=== PATIENT | male | born 1980 | race Caucasian/White ===

== ENCOUNTER 2017-01-15 10:19 | Emergency (ER) | payer OTHER ==
[~2017-01-15] VITALS: Ht 170.2 cm; Wt 82.0 kg
[~2017-01-15 10:19] MED LIST: RISP1 PO; RISP3TAB23 PO
[2017-01-15 10:23] VITALS: BP 139/79; PULSE 97; RESP 18; TEMP 97.8; O2SAT 98
--- NOTE | 2017-01-15 10:35 | PD ---
HPI . acute on chronic neck and back pain Chief Complaint: Back/ Neck Pain or Injury Time Seen by Provider: 10:28 Travel History International Travel<30 days: No Contact w/Intl Traveler<30days: No Traveled to known affect area: No History of Present Illness HPI 36-year-old male with chronic neck and back pain here with complaints of acute on chronic back pain. Patient tells me that he was previously seen by his primary care provider over 4 weeks ago and given Flexeril for his pain, which has not been working. He tells me that now he is having worsening pain that is deep within and cannot be reproduced on examination. He denies any bowel or bladder dysfunction. He denies any saddle anesthesia. Denies any recent injury. He does work cleaning windows and tells me that this pain is making it difficult to work. PFSH Past Medical History Bipolar Disorder: Yes Social History Alcohol Use: Yes (DAILY "VARIES AT LEAST 5/BEERS") Tobacco Use: Yes (1.5 PPD) Substance Use: No Allergies-Medications (Allergen,Severity, Reaction): Coded Allergies: Scallop (Verified Allergy, Severe, swelling, 01/15/17) Reported Meds & Prescriptions Reported Meds & Active Scripts Active Prednisone 50 Mg Tab 50 Mg PO DAILY Risperdal (Risperidone) 3 Mg Tab 3 Mg PO DAILY 30 Days Risperdal (Risperidone) 3 Mg Tab 3 Mg PO DAILY 10 Days Reported Risperdal (Risperidone) 1 Mg Tab 3 Mg PO HS Review of Systems General / Constitutional: No: Fever Eyes: No: Visual changes HENT: No: Headaches Cardiovascular: No: Chest Pain or Discomfort Respiratory: No: Shortness of Breath Gastrointestinal: No: Abdominal Pain Genitourinary: No: Dysuria Musculoskeletal: Positive: Pain (back and neck pain) Skin: No Rash Neurologic: No: Weakness Psychiatric: No: Depression Endocrine: No: Polydipsia Hematologic/Lymphatic: No: Easy Bruising Physical Exam Narrative GENERAL: AAO x 3, no acute distress, Well-nourished, well-developed patient. SKIN: Warm and dry. No visible rashes or bruising. HEAD: Normocephalic and atraumatic. EYES: No scleral icterus. No injection or drainage. EOM intact, PERRLA ENT: No nasal drainage noted. Mucous membranes pink. Airway patent. NECK: Supple, trachea midline. No JVD. No C-spine tenderness. Full range of motion. Flexion and extension normal. CARDIOVASCULAR: Regular rate and rhythm without murmurs, gallops, or rubs. RESPIRATORY: Breath sounds equal bilaterally. No accessory muscle use. No rhonchi or rales. GASTROINTESTINAL: Visual inspection normal EXTREMITIES: No cyanosis or edema. BACK: Nontender without obvious deformity. No CVA tenderness. No paraspinal tenderness. Gait is normal. Negative heel walk test. NEURO: Strength in upper and lower extremities normal. CN II through XII intact PSYCH: AAO x 3, normal affect. Data Data Last Documented VS Vital Signs Date Time Temp Pulse Resp B/P Pulse Ox O2 Delivery O2 Flow Rate FiO2 01/15/17 10:23 97.8 97 18 139/79 98 Orders Ketorolac Inj (Toradol Inj) (01/15/17 10:45) MDM Medical Decision Making Medical Screen Exam Complete: Yes Emergency Medical Condition: Yes Medical Record Reviewed: Yes Differential Diagnosis Acute on chronic neck and back pain, less likely C-spine fracture, less likely lumbar fracture, lumbar radiculopathy, cervical radiculopathy Narrative Course This is a 36-year-old male with acute on chronic neck and back pain. A thorough examination has been completed and I do not suspect any type of bony acute abnormality. It is possible he could have some bulging disc or possible cervical and lumbar radiculopathy. I've explained to him that ultimately he will need to follow-up with his primary care provider for further workup and recommendations. He does have Flexeril at home, which he can continue to use. He tells me that he is not here looking for pain medication and he really needs to get to the bottom of this. He was hoping that we could somehow figure out what was going on with his back. I explained to him that his PCP will determine the next course of action. He was given a toradol injection in the ED. Steroids at home. Patient verbalized understanding of instructions, questions were answered, and thanked me for their care. I advised them if their condition worsens, please return to the nearest emergency room for further care. Diagnosis Primary Impression: Chronic neck and back pain Patient Instructions: General Instructions Departure Forms: Tests/Procedures, Work Release Enter return to work date: January 16, 2017 Additional Instructions: Please follow-up with your primary care provider for further instructions as to how to get imaging tests done and follow-up. You can continue to use your flexeril at home. Please return to emergency department if your symptoms return or worsen. Follow up with your primary care provider. Take medications as prescribed. Med/Other Pt SpecificInfo: Prescription(s) given Scripts Prednisone 50 Mg Tab50 Mg PO DAILY #5 TAB Prov:Denis Medina MD 01/15/17 Disposition: 01 DISCHARGE HOME Condition: Stable Mary Alice Tamez January 15, 2017 10:35
[2017-01-15] MEDS ORDERED: PRED50 PO (10:37)
[2017-01-15] MEDS ORDERED: KETOROLAC TROMETHAMINE 60 MG/2 ML (IM) VIAL IM ONE (10:45)
== END 2017-01-15 11:24 | disposition home or self-care (01) ==
LOC: NEPK 10:19
DX: M54.2 Cervicalgia (principal); G89.29 Other chronic pain
CPT/HCPCS: 96372; 99282; J1885

== ENCOUNTER 2017-12-10 12:38 | Emergency (ER) | payer OTHER ==
[~2017-12-10] VITALS: Ht 170.2 cm; Wt 78.0 kg
[~2017-12-10 12:38] MED LIST changes: +PRED50 PO; -RISP1 PO; -RISP3TAB23 PO
[2017-12-10 12:41] VITALS: BP 156/85; PULSE 102; RESP 16; TEMP 97.5; O2SAT 99
[2017-12-10] MEDS ORDERED: CYCL10TA PO (12:56)
[2017-12-10] MEDS ORDERED: FENO145T2 PO (12:56)
[2017-12-10] MEDS ORDERED: BUPR1TAB70 PO (12:56)
[2017-12-10] MEDS ORDERED: SERO50TA PO (12:56)
[2017-12-10] MEDS ORDERED: ANDR1GEL2 TOPICAL (12:56)
[2017-12-10] MEDS ORDERED: ROBA750T PO (13:55)
[2017-12-10] MEDS ORDERED: KETO10 PO (13:55)
--- NOTE | 2017-12-10 13:55 | PD ---
HPI Chief Complaint: Musculoskeletal Complaint Time Seen by Provider: 12:50 Travel History International Travel<30 days: No Contact w/Intl Traveler<30days: No Traveled to known affect area: No History of Present Illness HPI 37-year-old male here with nontraumatic upper back and neck pain. He reports the pain as spasming in nature. Nonradiating. No fever chills. 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 He is currently taking Flexeril with minimal relief. Symptom severity is moderate. Aggravated by palpation of the trapezius muscles. Relieved with rest. PFSH Past Medical History Bipolar Disorder: Yes High Cholesterol: Yes (triglyceides ) Diminished Hearing: No Diverticulitis: Yes Tetanus Vaccination: Unknown Influenza Vaccination: No Past Surgical History Surgical History: No Previous Surgery Social History Alcohol Use: Yes (DAILY "VARIES AT LEAST 5/BEERS") Tobacco Use: Yes (1.5 PPD) Substance Use: No Allergies-Medications (Allergen,Severity, Reaction): Coded Allergies: scallops (Unverified Allergy, Severe, swelling, 12/10/17) Reported Meds & Prescriptions Reported Meds & Active Scripts Active Robaxin (Methocarbamol) 750 Mg Tab 750 Mg PO QID Ketorolac (Ketorolac Tromethamine) 10 Mg Tab 10 Mg PO Q6HR PRN 5 Days Reported Flexeril (Cyclobenzaprine HCl) 10 Mg Tab 10 Mg PO TID Bupropion HCl ER 12 HR (Bupropion HCl) 100 Mg Tab 150 Mg PO Q12HR Fenofibrate 145 Mg Tab 145 Mg PO DAILY Seroquel (Quetiapine Fumarate) 50 Mg Tab 50 Mg PO HS Androgel Topical (Testosterone) 50 Mg/5 Gram (1 %) Gel 50 Mg TOPICAL DAILY Apply in the morning to the thighs. Review of Systems Except as stated in HPI: all other systems reviewed are Neg General / Constitutional: No: Fever Eyes: No: Visual changes HENT: No: Headaches Cardiovascular: No: Chest Pain or Discomfort Respiratory: No: Shortness of Breath Gastrointestinal: No: Abdominal Pain Genitourinary: No: Dysuria Physical Exam Narrative GENERAL: Alert and well-appearing 37-year-old SKIN: Warm and dry. HEAD: Normocephalic. EYES: No scleral icterus. No injection or drainage. NECK: Supple, trachea midline. + TTP bilateral trapezius muscles. CARDIOVASCULAR: Regular rate and rhythm without murmurs, gallops, or rubs. RESPIRATORY: Breath sounds equal bilaterally. No accessory muscle use. GASTROINTESTINAL: Abdomen soft, non-tender, nondistended. MUSCULOSKELETAL: No cyanosis, or edema. Normal strength and sensation in extremities. Equal hand grasp. BACK: Nontender without obvious deformity. No CVA tenderness. Data Data Last Documented VS Vital Signs Date Time Temp Pulse Resp B/P (MAP) Pulse Ox O2 Delivery O2 Flow Rate FiO2 12/10/17 12:41 97.5 102 16 156/85 (108) 99 Orders Orders Ed Discharge Order (12/10/17 13:59) MDM Medical Decision Making Medical Screen Exam Complete: Yes Emergency Medical Condition: Yes Differential Diagnosis Trapezius muscle spasm, cervical strain, other Narrative Course 37-year-old male here with trapezius muscle spasm. He is well-appearing. No distress. Has normal neurologic exam. He will be treated with NSAIDs and muscle related pain Diagnosis Primary Impression: Trapezius muscle spasm Referrals: [facility] Additional Instructions: Medication as directed. Ice and/or heat for comfort. Avoid heavy lifting or straining his activity. Scripts Methocarbamol (Robaxin) 750 Mg Tab 750 MG PO QID for Muscle Spasm, #12 TAB 0 Refills Prov: Benita Fontenot 12/10/17 Ketorolac (Ketorolac) 10 Mg Tab 10 MG PO Q6HR Y for PAIN for 5 Days, TAB 0 Refills Prov: Benita Fontenot 12/10/17 Disposition: 01 DISCHARGE HOME Condition: Stable Benita Fontenot Dec 10, 2017 13:55
[2017-12-10] MEDS ORDERED: KETOROLAC TROMETHAMINE 60 MG/2 ML (IM) VIAL IM ONE (14:30)
== END 2017-12-10 14:34 | disposition home or self-care (01) ==
LOC: PHEFT 12:38
DX: M62.830 Muscle spasm of back (principal); F31.9 Bipolar disorder, unspecified; E78.2 Mixed hyperlipidemia; F17.200 Nicotine dependence, unspecified, uncomplicated
CPT/HCPCS: 96372; 99283; J1885